=== PATIENT | female | born 1975 | race Two or more races ===

== ENCOUNTER → 2020-10-21 | Outpatient (CLI) | payer OTHER ==
[~2020-10-21] MED LIST: AIRBORNE EFFER1 EACH PO; IVERMECTIN3 MG PO
== END | disposition home or self-care (01) ==
LOC: RAD 14:26
PROVIDERS: ATTEND General Practice
DX: J20.8 Acute bronchitis due to other specified organisms (principal); J01.80 Other acute sinusitis

== ENCOUNTER 2020-10-22 15:17 | Outpatient (CLI) | payer OTHER ==
[2020-10-23] MEDS ORDERED: IVERMECTIN3 MG PO (17:00)
[2020-10-23] MEDS ORDERED: AIRBORNE EFFER1 EACH PO (17:00)
== END 2020-10-22 15:27 | disposition home or self-care (01) ==
LOC: TOM 15:17
PROVIDERS: ATTEND General Practice
DX: R05 Cough (principal); J20.8 Acute bronchitis due to other specified organisms

== ENCOUNTER 2020-10-23 13:52 | Emergency (ER) | payer BC ==
[~2020-10-23] VITALS: Ht 157.5 cm; Wt 49.9 kg
[2020-10-23] MEDS ORDERED: IVERMECTIN3 MG PO (17:00)
[2020-10-23] MEDS ORDERED: AIRBORNE EFFER1 EACH PO (17:00)
== END 2020-10-23 17:13 | disposition home or self-care (01) ==
LOC: ER 13:52
DX: U07.1 COVID-19 (principal); J12.82 Pneumonia due to coronavirus disease 2019

== ENCOUNTER 2020-10-25 13:08 | Emergency (ER) | payer BC ==
[~2020-10-25] VITALS: Ht 157.5 cm; Wt 54.4 kg
== END 2020-10-25 16:03 | disposition home or self-care (01) ==
LOC: ER 13:08
DX: U07.1 COVID-19 (principal); D72.828 Other elevated white blood cell count

== ENCOUNTER 2020-11-06 14:23 | Outpatient (CLI) | payer OTHER | END 2020-11-06 14:32 | disposition home or self-care (01) | LOC: TOM 14:23 | PROVIDERS: ATTEND General Practice | DX: U07.1 COVID-19 (principal); J12.89 Other viral pneumonia ==

== ENCOUNTER 2023-03-31 13:28 | Outpatient (CLI) | payer OTHER | END 2023-03-31 13:30 | disposition home or self-care (01) | LOC: NUCLEAR 13:28 | PROVIDERS: ATTEND General Practice | DX: M81.0 Age-related osteoporosis without current pathological fracture (principal); M81.8 Other osteoporosis without current pathological fracture ==

== ENCOUNTER 2023-03-31 14:22 | Outpatient (CLI) | payer OTHER | END 2023-03-31 14:29 | disposition home or self-care (01) | LOC: RAD 14:22 | PROVIDERS: ATTEND General Practice | DX: Z12.31 Encounter for screening mammogram for malignant neoplasm of breast (principal); R92.8 Other abnormal and inconclusive findings on diagnostic imaging of breast; J45.998 Other asthma; E03.9 Hypothyroidism, unspecified ==